=== PATIENT | male | born 1955 | race Caucasian/White ===

== ENCOUNTER 2023-01-29 16:27 | Emergency (ER) | payer MEDICARE ==
[2023-01-29] MEDS ORDERED: Sodium Chloride 0.9% 10 ML Syringe FLUSH PRN (16:46)
[2023-01-29 17:32] LABS: ANION GAP 10.4 mEq/L (7-13); CHLORIDE,CL 101 mmol/L (98-107); SODIUM,NA 138 mmol/L (136-145)
[2023-01-29 17:33] LABS: ESTIMATED GFR 103 mL/min (>=60)
[2023-01-29] MEDS ORDERED: Potassium Chloride 20 MEQ in Premix Bag 1 BAG IV ONE ×2 (17:39→17:40)
[2023-01-29] MEDS ORDERED: Potassium Chloride 10 MEQ Tab.ER PO ONE ×2 (17:39→17:40)
== END 2023-01-29 23:04 | disposition home or self-care (01) ==
LOC: DL.ED 16:27
DX: E87.6 Hypokalemia (principal)
CPT/HCPCS: 36415; 71045; 80053; 81001; 83605; 83735; 84132; 84145; 85025; 86140; 87040; 93005; 96365; 96366; 99285; A9270; J3480; J3490

== ENCOUNTER 2023-04-06 16:19 | Emergency (ER) | payer MEDICARE ==
[2023-04-06] MEDS ORDERED: Sodium Chloride 0.9% 1,000 ML IV ONE (17:28)
[2023-04-06 17:50] LABS: HEMATOCRIT 30.5 % (40.0-54.0); MEAN CORPUSCULAR HEMOGLOBIN 34.4 pg (27.0-34.0); MEAN CORPUSCULAR HGB CONC 32.8 g/dL (33.0-35.0); MEAN CORPUSCULAR VOLUME 104.8 fL (80-100); PLATELET COUNT,PLT 84 10^3/uL (150-450); RED BLOOD CELL COUNT 2.91 10^6/uL (4.6-6.2)
[2023-04-06 17:54] LABS: BASOPHILS PERCENT AUTO 0.1 % (0.0-1.0); EOSINOPHILS PERCENT AUTO 0.6 % (1.0-3.0); LYMPHOCYTES PERCENT AUTO 14.2 % (20.5-50.1); MONOCYTES PERCENT AUTO 7.4 % (2-8); NEUTROPHILS PERCENT AUTO 77.7 % (42.2-75.2)
[2023-04-06 18:10] LABS: ALBUMIN 2.2 g/dL (3.4-5.0); ANION GAP 12.6 mEq/L (7-13); BILIRUBIN TOTAL 0.3 mg/dL (0.2-1.0); CREATININE 0.77 mg/dL (0.70-1.30); EST CRCL DRUG DOSING (CG) 65.29 mL/min; MAGNESIUM 1.6 mg/dL (1.8-2.4); POTASSIUM,K 2.6 mmol/L (3.5-5.1); PROTEIN TOTAL,TP 5.5 g/dL (6.4-8.2)
[2023-04-06 18:12] LABS: A/G RATIO 0.67
[2023-04-06 18:13] LABS: LACTIC ACID 1.7 mmol/L (0.4-2.0)
[2023-04-06 18:18] LABS: LYMPHOCYTES PERCENT MAN 20 % (20-50); MONOCYTES PERCENT MAN 1 % (2-8); SEG NEUTROPHILS PERCENT MAN 79 % (42-75)
[2023-04-06] MEDS ORDERED: Magnesium Sulfate/Water 2 GM in Premix Bag 1 BAG IV ONE (18:27)
[2023-04-06] MEDS ORDERED: Ondansetron 4 MG/2 ML SDV IV ONE (18:28)
[2023-04-06] MEDS ORDERED: NS with KCl 40mEq 1,000 ML IV SCH (18:30)
[2023-04-06] MEDS ORDERED: Potassium Chloride 10% 20 MEQ/15 ML Soln 15 ML UD Cup ONE (19:06)
[2023-04-07] MEDS ORDERED: Potassium Chloride 10% 20 MEQ/15 ML Soln 15 ML UD Cup PO ONE (18:29)
== END 2023-04-06 21:18 ==
LOC: DL.ED 16:19
DX: E87.6 Hypokalemia (principal); E86.0 Dehydration; C25.9 Malignant neoplasm of pancreas, unspecified; C78.7 Secondary malignant neoplasm of liver and intrahepatic bile duct; R64 Cachexia
CPT/HCPCS: 36415; 71045; 80053; 82140; 83605; 83690; 83735; 84145; 85025; 87040; 93005; 96361; 96365; 96366; 96368; 96375; 99285; A9270; J2405; J3475; J3480; J7030